=== PATIENT | male | born 1980 | race Caucasian/White ===

== ENCOUNTER 2016-10-30 16:26 | Emergency (ER) | payer OTHER ==
[~2016-10-30 16:26] MED LIST: IBUPROFEN PO; LORTAB 7.5-5001 TAB PO
== END 2016-10-30 18:08 | disposition home or self-care (01) ==
LOC: SED 16:26
DX: S09.90XA Unspecified injury of head, initial encounter (principal); S01.01XA Laceration without foreign body of scalp, initial encounter; W20.8XXA Other cause of strike by thrown, projected or falling object, initial encounter; Y92.009 Unspecified place in unspecified non-institutional (private) residence as the place of occurrence of the external cause
CPT/HCPCS: 12002; 99284